=== PATIENT | male | born 1950 | race Caucasian/White ===

== ENCOUNTER 2022-08-24 23:20 | Emergency (ER) | payer MEDICARE ==
[~2022-08-24] VITALS: Ht 175.3 cm; Wt 58.1 kg
[2022-08-24 23:22] VITALS: BP 100/58
--- NOTE | 2022-08-24 23:50 | NUR ---
PT TOPHER WHITNEY
--- NOTE | 2022-08-25 02:06 | NUR ---
Dr. Villa examining patient.
--- NOTE | 2022-08-25 02:20 | NUR ---
[facility]ed [employer] [place] [employer] [place] [employer] [place].
[2022-08-25 02:21] VITALS: BP 100/58
--- NOTE | 2022-08-25 02:21 | NUR ---
Patient discharged with v/s stable. Written and verbal after care instructions given and explained. Patient verbalized understanding. Ambulatory with steady gait. All questions addressed prior to discharge. Advised to follow up with PMD.
== END 2022-08-25 02:21 | disposition home or self-care (01) ==
LOC: MED 23:20
DX: Z02.89 Encounter for other administrative examinations (principal)
CPT/HCPCS: 99283